=== PATIENT | male | born 1990 | race Caucasian/White ===

== ENCOUNTER 2023-07-22 16:19 | Emergency (ER) | payer MEDICAID ==
[~2023-07-22] VITALS: Ht 170.2 cm; Wt 81.6 kg
[2023-07-22] MEDS ORDERED: KETOROLAC TROMETHAMINE 15 MG/ML VIAL ONE (18:03)
[2023-07-22] MEDS ORDERED: ACETAMINOPHEN ES 500 MG TABLET ONE (18:04)
[2023-07-22] MEDS: KETOROLAC TROMETHAMINE 15 MG/ML VIAL IM ONE (18:11)
[2023-07-22] MEDS: ACETAMINOPHEN ES 500 MG TABLET PO ONE (18:11)
[2023-07-22] MEDS ORDERED: LORAZEPAM 1 MG TABLET ONE (19:43)
[2023-07-22] MEDS: LORAZEPAM 1 MG TABLET PO ONE (19:54)
[2023-07-22] MEDS: IV NS 0.9% 1,000 ML BAG IV ONE (19:54)
[2023-07-22] MEDS ORDERED: CYCL5TAB PO (21:24)
[2023-07-22] MEDS ORDERED: IBUP-1955 PO (21:24)
[2023-07-22] MEDS ORDERED: ACET-2605 PO (21:24)
[2023-07-22 21:56] VITALS: BP 144/85; TEMP 98.3; O2SAT 98
== END 2023-07-22 21:58 | disposition home or self-care (01) ==
LOC: ER 17:16
DX: M54.59 Other low back pain (principal); R07.89 Other chest pain; Z60.2 Problems related to living alone; V43.52XA Car driver injured in collision with other type car in traffic accident, initial encounter; Y93.89 Activity, other specified; Y92.488 Other paved roadways as the place of occurrence of the external cause; Y99.8 Other external cause status
CPT/HCPCS: 99285; 71250; 96372; 93005; 72131; A4223; J1885